=== PATIENT | male | born 1995 | race Caucasian/White ===

== ENCOUNTER 2017-04-17 11:19 | Emergency (ER) | payer SELFPAY ==
[2017-04-17 11:33] VITALS: BP 119/69; PULSE 47; TEMP 98.4; BMI 18.4
[2017-04-17] MEDS ORDERED: DIPHTH,PERTUSS(ACELL),TET 0.5 ML DISP.SYRIN IM ONE (12:16)
--- NOTE | 2017-04-17 12:21 | PDOC ---
History of Present Illness - General Chief Complaint: Laceration Stated Complaint: LT HAND INJURY Time Seen by Provider: 04/17/17 11:40 History Source: Patient Exam Limitations: No Limitations - History of Present Illness Initial Comments: 04/17/17 12:16 21 yr male with c/o laceration to the top of his left hand while at work today on a glass mirror. 04/17/17 12:26 Past History - Past Medical History Allergies/Adverse Reactions: Allergies Allergy/AdvReac Type Severity Reaction Status Date / Time No Known Allergies Allergy Verified 04/17/17 11:30 Home Medications: Ambulatory Orders NK [No Known Home Medication] 04/17/17 Other medical history: DENIES. - Psycho/Social/Smoking Cessation Hx Suicidal Ideation: No Smoking History: Current every day smoker Have you smoked in the past 12 months: Yes Number of Cigarettes Smoked Daily: 4 Information on smoking cessation initiated: No Review of Systems - Review of Systems Able to Perform ROS?: Yes Is the patient limited Slovak proficient: Yes Constitutional: No: Symptoms Reported HEENTM: No: Symptoms Reported Musculoskeletal: Yes: Symptoms Reported Integumentary: No: Symptoms Reported Neurological: No: Symptoms reported *Physical Exam - Vital Signs Last Vital Signs Temp Pulse Resp BP Pulse Ox 98.4 F 47 L 19 119/69 100 04/17/17 11:30 04/17/17 11:30 04/17/17 11:30 04/17/17 11:30 04/17/17 11:30 - Physical Exam General Appearance: Yes: Nourished, Appropriately Dressed HEENT: positive: EOMI, EDILBERTO Neck: positive: Supple. negative: Tender Extremity: positive: Normal Capillary Refill, Other (laceration to dorsal surface left hand middle of hand) Neurologic: positive: Fully Oriented, Alert, Normal Mood/Affect, Normal Response , Motor Strength 5/5 Procedures - Laceration/Wound Repair Left Dorsal Hand Wound Length: 2.6 to 5.0 cm Wound Explored: clean Wound's Depth, Shape: into muscle, linear Irrigated w/ Saline: Yes Betadine Prep: Yes Anesthesia: 1% Lidocaine Amount of Anesthetic (ccs): 4 Wound Repaired With: Sutures, Steri-strips Suture Size/Type: 5:0, nylon Number of Sutures: 6 Layer Closure: No Sterile Dressing Applied: Yes Medical Decision Making - Medical Decision Making 04/17/17 12:28 cc: left hand laceration partial thickness, FROM no tendon involvement pt moves all 5 digits without distress or limitation no active bleeding will suture closed, update tetanus pt understands and agrees with the plan of care all questions asked and answered at discharge. *DC/Admit/Observation/Transfer Diagnosis at time of Disposition: Laceration of hand Qualifiers: Encounter type: initial encounter Foreign body presence: without foreign body Laterality: left Qualified Code(s): S61.412A - Laceration without foreign body of left hand, initial encounter - Patient Instructions Printed Discharge Instructions: DI for Laceration Repair Additional Instructions: keep dry do not remove the bandaid for 48hrs the steri stips will stay on the wound for about 3 days they will peel off on their own place bacitracin once a day to the wound and keep covered air dry the wound when at home return in 7-10 days for suture removal return sooner if any pain fever or drainage form the wound Mantenga seco no quite el bandaid por 48hrs Los estere stips permanecern en la herida por cerca de 3 curiel que descascarn apagado en josefina el propios Coloque la bacitracina rolando vez al da en la herida y mantngase cubierta Secar al aire la herida cuando est en casa Retorno en 7-10 curiel para la eliminacin de la sutura Volver ms pronto si hay dolor fiebre o drenaje forma la herida Print Language: PORTUGUESE
== END 2017-04-17 12:30 | disposition home or self-care (01) ==
LOC: JERFT 11:19
PROC: 0HQGXZZ Repair Left Hand Skin, External Approach (ICD-10-PCS; principal; 2017-04-17)
DX: S61.412A Laceration without foreign body of left hand, initial encounter (principal); W25.XXXA Contact with sharp glass, initial encounter; Y93.9 Activity, unspecified; Y92.9 Unspecified place or not applicable; Y99.0 Civilian activity done for income or pay; F17.210 Nicotine dependence, cigarettes, uncomplicated
CPT/HCPCS: 90715; 99282-25